=== PATIENT | female | born 1985 | race Caucasian/White ===

== ENCOUNTER → 2018-01-18 | Outpatient (CLI) | payer OTHER ==
[~2018-01-18] MED LIST: CIPR-326 PO; IOPAMIDOL 76% 75 ML INFUS BTL 75 ML ONE; NORG1TAB5 PO; NYST15CR32 TP; PRO25 PO
--- NOTE | 2018-01-18 20:24 | RADIOLOGY IMAGING REPORT ---
FACILITY: [facility] - [place], [place] PATIENT NAME: Bella Waldrop : 1985 MR: [id number] V: [id number] EXAM DATE: ORDERING PHYSICIAN: ROBERTO CARLOS GREER TECHNOLOGIST: Location: [facility] Patient: Bella Waldrop : 1985 Visit/Account:[id number] Date of Sevice: 01/18/2018 EXAMINATION: CT neck with IV contrast HISTORY: Sore throat. Evaluate for peritonsillar abscess. TECHNIQUE: Axial CT images of the neck were obtained with IV contrast, with coronal and sagittal 2D reconstructed images. One of the following dose optimization techniques was utilized in the performance of this exam: Autom ated exposure control; adjustment of the mA and/or kV according to the patient's size; or use of an i terative reconstruction technique. Specific details can be referenced in the facility's radiology C T exam operational policy. Contrast: 75 mL of IV [id number]-[id number]. COMPARISON: None. FINDINGS: There is moderate enlargement of the palatine tonsils bilaterally. No evidence of discrete intratonsi llar or peritonsillar abscess. Tonsillar enlargement results in moderate narrowing of the oropharynx. Additional enlargement of the lingual tonsils. The parotid and submandibular glands are unremarkable by CT. Mildly enlarged cervical lymph nodes bilaterally are likely reactive. Largest lymph nodes include a 2 .5 x 1.1 cm node along the right level II neck, and a 2.3 x 1.2 cm node along the left level II neck. Vasculature of the neck is patent. Visualized osseous structures appear intact. The paranasal sinuses and mastoid air cells are unopacif ied. Normal alignment along the cervical spine. The partially visualized intracranial structures are unremarkable. The visualized upper lungs are clear. IMPRESSION: 1. Enlargement of the bilateral palatine tonsils, without evidence of intratonsillar or peritonsillar abscess. This results in moderate narrowing of the oropharynx. 2. Additional enlargement of the lingual tonsils. 3. Enlarged level II lymph nodes bilaterally are likely reactive. Report Dictated By: Zana Thayer MD at 01/18/2018 8:15 PM Report E-Signed By: Zana Thayer MD at 01/18/2018 8:20 PM WSN:[id number]
== END ==
LOC: CT 18:54
PROVIDERS: ATTEND Nurse Practitioner Family
DX: J35.1 Hypertrophy of tonsils (principal); R59.0 Localized enlarged lymph nodes
CPT/HCPCS: 70491; Q9967